=== PATIENT | female | born 1945 | race African-American/Black ===

== ENCOUNTER 2020-03-01 18:44 | Inpatient (IN) | payer OTHER ==
[~2020-03-01] VITALS: Ht 162.6 cm; Wt 103.4 kg
[~2020-03-01 18:44] MED LIST: LISINOPRIL20 MG PO; MAXZIDE-25 MG1 EACH PO; METOPROLOL TART25 MG PO; POTASSIUM20 PO; PROTONIX40 M1 PO
[2020-03-01 18:45] VITALS: BP 91/51
[2020-03-01 19:48] LABS: ABSOLUTE NEUTROPHILS 7.6 thou/uL (1.4-8.2); EOSINOPHILS 1.2 % (0.0-3.0); HEMATOCRIT 30.4 % (37.0-47.0); HEMOGLOBIN 9.7 gm/dL (12.0-15.0); LYMPHOCYTES 7.8 % (24.0-44.0); MCH 30.7 pg (26.0-34.0); MCHC 31.9 g/dL (28.0-37.0); MCV 96.3 fL (80.0-100.0); MONOCYTES 6.5 % (1.0-8.0); PLATELET COUNT 183 thou/uL (150-400); POLYS 83.5 % (36.0-66.0); RBC 3.16 mil/uL (4.20-5.00); RDW 18.4 % (10.5-14.5); WBC 9.1 thou/uL (4.0-11.0)
[2020-03-01 19:58] LABS: ANION GAP 9 mmol/L (7-16); BUN 19 mg/dL (7-18); CALCIUM 8.8 mg/dL (8.5-10.1); CHLORIDE 104 mmol/L (98-107); CO2 28 mmol/L (21-32); CREATININE 1.5 mg/dL (0.6-1.0); GLUCOSE 163 mg/dL (74-106); POTASSIUM 3.1 mmol/L (3.5-5.1); SODIUM 141 mmol/L (136-145)
[2020-03-01 20:02] LABS: TROPONIN-I <0.06 ng/mL (<0.06)
--- NOTE | 2020-03-01 20:55 | NUR ---
PATIENT REPORTS UNABLE TO VOID, REQUESTS NOT TO HAVE STRAIGHT CATH OR BRICE.
[2020-03-01] MEDS ORDERED: NORVASC 2.5 MG2.5 M1 PO (21:49)
[2020-03-01] MEDS ORDERED: ALLEGRA-D 12 H1 EAC1 PO (21:53)
[2020-03-01] MEDS ORDERED: AMITRIPTYLINE H10 M1 PO (21:53)
[2020-03-01] MEDS ORDERED: LIPITOR 40 MG T40 M1 PO (21:54)
[2020-03-01] MEDS ORDERED: CHILDREN'S ASPI81 M1 PO (21:54)
[2020-03-01] MEDS ORDERED: CELEBREX 200 M200 MG PO (21:54)
[2020-03-01] MEDS ORDERED: EZETIMIBE10 MG PO (21:55)
[2020-03-01] MEDS ORDERED: FUROSEMIDE 20 M20 M1 PO (21:56)
[2020-03-01] MEDS ORDERED: TIZANIDINE HCL4 M1 PO (21:57)
[2020-03-01 22:22] LABS: APTT 26.4 Seconds (24.5-32.8); PROTIME 10.1 Seconds (9.3-11.4)
[2020-03-01 23:26] VITALS: BP 138/65
[2020-03-01 23:39] VITALS: BP 138/65
[2020-03-01 23:55] VITALS: BP 134/76; BP 138/64; BP 138/71
[2020-03-02] VITALS (8 sets, daily range): BP systolic 110–184; BP diastolic 56–85
[2020-03-02] MEDS ORDERED: XARELTO20 MG PO (00:44)
[2020-03-02] MEDS ORDERED: IMDUR 30 MG TAB30 M1 PO (00:45)
[2020-03-02] MEDS ORDERED: ADVAIR 100-501 EACH INH (00:46)
--- NOTE | 2020-03-02 02:09 | NUR ---
NEW ADMISSION TO THE UNIT. ARRIVED VIA CART FROM THE ED AND WAS ABLE TO AMBULATE TO THE BED WITH MINIMAL ASSISTANCE. PATIENT IS FULLY ALERT AND ORIENTED AND ABLE TO PARTICIPATE IN THE ADMISSION PROCESS. PRELIMINARY ORTHOSTATIC VITALS OBTAINED D/T DX OF SYNCOPE ON ADMISSION. VSS AND ON ROOM AIR. PATIENT STATED THAT SHE BECAME INCONTINENT DURING SYNCOPAL EPISODE AND JAIMIE-CARE AND A NEW BRIEF WERE PROVIDED. NURSE TO COMPLETE ADMISSION AND INITIATE PLAN OF CARE.
[2020-03-02 04:59] LABS: CALCIUM 8.5 mg/dL (8.5-10.1); CREATININE 1.2 mg/dL (0.6-1.0); POTASSIUM 3.1 mmol/L (3.5-5.1)
[2020-03-02 07:18] LABS: HEMATOCRIT 27.4 % (37.0-47.0); HEMOGLOBIN 8.4 gm/dL (12.0-15.0); MCH 30.3 pg (26.0-34.0); MCHC 30.8 g/dL (28.0-37.0); MCV 98.4 fL (80.0-100.0); RBC 2.78 mil/uL (4.20-5.00); RDW 18.5 % (10.5-14.5); WBC 8.4 thou/uL (4.0-11.0)
--- NOTE | 2020-03-02 07:22 | EKG ---
[facility] [place] [address] ELECTROCARDIOGRAM REPORT Name: STAR KUMAR Room #: 212-P ADM IN M.R.#: [id number] Admission: 03/01/20 Attend Phys: Adam Jolly Discharge: Date of : 47 Report #: [id number] THIS REPORT FOR: cc: Ronny Kim MD, Keninde A. MD Lundgren,Jamil Molina MD [facility] ~ THIS REPORT FOR: //name// [facility] ED Test Date: 2020-03-01 Test Time: 19:00:04 Pat Name: STAR KUMAR Department: Room: [facility] Gender: F Stump Blower: NO : 1945 Requested By: Teja Brooks Order Number: [id number] MD: Jamil Giraldo Measurements Intervals [place] Rate: 114 P: 17 LA: 152 QRS: -11 QRSD: 90 T: -1 QT: 358 QTc: 494 Interpretive Statements Sinus tachycardia Possible inferior infarct, old Baseline wander in lead(s) V4,V5 Compared to ECG 04/26/2015 01:53:51 Inferior Q waves are more prominent Electronically Signed On 03-02-2020 7:22:36 TRANSCRIPTION COORDINATOR by Jamil Giraldo [email or web address] <ELECTRONICALLY SIGNED> By: Jamil Giraldo MD, FACC 03/02/20 07 99 99 Jamil Giraldo MD, FACC /EPI
[2020-03-02 08:13] LABS: % SATURATION 12 % (20-39); IRON 21 ug/dL (50-170); TIBC 173 ug/dL (250-450)
--- NOTE | 2020-03-02 11:45 | NUR ---
SC CONSULT [id number] WAS COMPLETD BY THIS [employer]ESTER.
[2020-03-02 11:46] LABS: URINE BILIRUBIN NEGATIVE (Negative); URINE BLOOD NEGATIVE (Negative); URINE CLARITY CLEAR; URINE COLOR YELLOW; URINE GLUCOSE-RANDOM* NEGATIVE (Negative); URINE KETONES NEGATIVE (Negative); URINE LEUKOCYTES-REFLEX NEGATIVE (Negative); URINE NITRITE-REFLEX NEGATIVE (Negative); URINE PROTEIN (DIPSTICK) NEGATIVE (Negative); URINE UROBILINOGEN 0.2 E.U./dl (0.2-1.0)
[2020-03-02] MEDS ORDERED: NEURONTIN 300M300 M2 PO (17:02)
--- NOTE | 2020-03-02 17:24 | NUR ---
Case opened to follow for resumption of [place]. [place] [facility] [place]. She can not recall the agency name but would like to have them resumed [place]. She has been instructed to call cm with the agency name once she returns home on the day of dc. Will ask the attending for HH orders [place]. Pt's pcp is Dr. Ronny Kim. She has a rwalker at home lives alone. She has supportive son if needed and he can take her home [place]. She is hoping to go home sometime this weekend. She is normally indep in her home but has been weaker than normal lately. She denies any other dc needs or concerns.
--- NOTE | 2020-03-02 19:35 | NUR ---
RECEIVED PT'S CARE AROUND 07; PT. ON BED; AOX4; C/O PAIN OVER RLQ; 04/05; ACETAMINOPHEN ON EMAR; PHYSICIAN NOTIFY BY [place]MAN TEXT; NO ANSWER BACK; ROUNDING EARLY ON THE MORNING; NOTIFIED; ORDERS ON PLACED; PT. REQUESTED NOT TO HAVE BREAKFAST BEFORE CT; ST. UNDERSTANDING; AM MEDICATIONS GIVEN; PRN IV MORPHINE GIVEN BEFORE GOING TO CT; RE-ASSESSMENT WHEN BACK; PAIN 08/04; EDUCATED ABOUT PAIN MANAGEMENT; [facility]. UND[facility]STAND[facility]; EDUCATED ABOUT FALL PRECAUTIONS; [facility]. UND[facility]STAND[facility]; CALLED APPROPIATELY THROUGH THE DAY; UA SAMPLE SENT TO LAB; EDUCATED ABOUT STOOL SAMPLE; ST. UNDERSTANDING; NO BM THROUGH THE DAY; C/O PAIN OVER HANDS; REQUESTED GABAPENTIN TAKEN AT HOME & EVENING MEDICATION; PT. DID NOT RECALL MEDICATION; WILL LET NIGHT NURSE NOTIFIED; PASSED ON REPORT; PHYSICIAN NOTIFIED ABOUT GABAPENTIN; ORDERS RECEIVED; ST ON THE MONITOR; PHYSICIANS AWARE; BP WNL; ASSESSMENT CHARGED; FOLLOWING POC; PASSED ON REPORT;
[2020-03-03] VITALS: BP 143/65
[2020-03-03 05:00] VITALS: BP 145/79
[2020-03-03 05:07] LABS: HEMATOCRIT 26.3 % (37.0-47.0); HEMOGLOBIN 8.3 gm/dL (12.0-15.0); MCH 30.8 pg (26.0-34.0); MCHC 31.6 g/dL (28.0-37.0); MCV 97.5 fL (80.0-100.0); RBC 2.7 mil/uL (4.20-5.00); RDW 18.2 % (10.5-14.5); WBC 5.7 thou/uL (4.0-11.0)
[2020-03-03 05:11] LABS: POTASSIUM 3.5 mmol/L (3.5-5.1)
--- NOTE | 2020-03-03 05:13 | NUR ---
PT IS ALERT AND ORIENTED X4. LUNGS ARE CLEAR ON ROOM AIR. SINUS TACH ON THE CAREDIAC MONIOTR. ORTHO BLOOD PRESSURES TAKEN DURING THE SHIFT ON PT PER NURSING. PT HAS A PORT A CATH ON HER RIGHT CHEST FOR LABS DRAWS OR ANY TREATEMENT NEEDED. PT IS PLEASANT. REPLACE POTASSIUM LEVEL WITH PO THIS AM. WILL CONTINUE TO MONITOR AND ASSESS PER SHARON.
[2020-03-03 07:45] VITALS: BP 140/41
[2020-03-03] MEDS ORDERED: METOPROLOL SUCC25 M1 PO (08:11)
--- NOTE | 2020-03-03 08:34 | NUR ---
ASSUMED CARE OF PT AT SHIFT CHANGE, A&0X4, C/O PAIN IN ERICH STARTED W/ADMISSION, SOUNDS LIKE MUSCULAR IN NATURE, WILL SENT PHYSICIAN NOTE IF APPLICABLE. ENCOURAGED PT TO USE CALL LIGHT FOR ANY NEEDS. SEE SEPARATE INTERVENTIONS FOR ASSESSMENTS
[2020-03-03 11:14] VITALS: BP 144/65
== END 2020-03-03 15:54 | disposition home or self-care (01) | DRG 640 ==
LOC: ER 18:44 → EROBS 22:49 → 2N 22:49
PROVIDERS: Emergency Medicine; Nurse Practitioner Family; ADMIT Hospitalist; ATTEND Hospitalist
DX: E87.6 Hypokalemia (principal); N17.0 Acute kidney failure with tubular necrosis; I95.9 Hypotension, unspecified; E78.00 Pure hypercholesterolemia, unspecified; M19.90 Unspecified osteoarthritis, unspecified site; E78.5 Hyperlipidemia, unspecified; I25.10 Atherosclerotic heart disease of native coronary artery without angina pectoris; G62.9 Polyneuropathy, unspecified; Z60.2 Problems related to living alone; D50.9 Iron deficiency anemia, unspecified; N18.9 Chronic kidney disease, unspecified; C50.919 Malignant neoplasm of unspecified site of unspecified female breast; I12.9 Hypertensive chronic kidney disease with stage 1 through stage 4 chronic kidney disease, or unspecified chronic kidney disease; C54.1 Malignant neoplasm of endometrium; Z95.5 Presence of coronary angioplasty implant and graft; I25.2 Old myocardial infarction; Z88.0 Allergy status to penicillin; Z88.4 Allergy status to anesthetic agent; Z88.8 Allergy status to other drugs, medicaments and biological substances; Z90.710 Acquired absence of both cervix and uterus; Z92.21 Personal history of antineoplastic chemotherapy; Z92.3 Personal history of irradiation; Z86.711 Personal history of pulmonary embolism
CPT/HCPCS: 10081